=== PATIENT | male | born 1950 | race Caucasian/White ===

== ENCOUNTER → 2021-11-13 16:16 | Outpatient (CLI) | payer MEDICARE, OTHER, SELFPAY ==
[2021-11-13 17:52] LABS: Prostate Specific Antigen 1.89 ng/mL (0.10-4.00)
== END ==
PROVIDERS: PCP Naturopath; Referring Provider Specialist; Visit Provider Specialist
DX: R97.20 Elevated prostate specific antigen [PSA] (principal); N40.1 Benign prostatic hyperplasia with lower urinary tract symptoms; N13.8 Other obstructive and reflux uropathy; R31.29 Other microscopic hematuria
CPT/HCPCS: 36415; 51798; 81002; 84153; 99215

== ENCOUNTER → 2022-01-01 15:56 | Outpatient (CLI) | payer MEDICARE, OTHER, SELFPAY | PROVIDERS: PCP Naturopath; Visit Provider Specialist | DX: N40.1 Benign prostatic hyperplasia with lower urinary tract symptoms (principal); N13.8 Other obstructive and reflux uropathy; R30.0 Dysuria; R31.29 Other microscopic hematuria | CPT/HCPCS: 81002; 87086; 99214 ==

== ENCOUNTER 2022-05-05 08:56 | Day surgery (SDC) | payer MEDICARE, OTHER, SELFPAY ==
[2022-04-28 15:02] VITALS: BMI 21.3
[2022-05-05] VITALS (7 sets, daily range): BP systolic 107–148; BP diastolic 42–78; PULSE 50–69; RESP 12–22; TEMP 36–36.4; O2SAT 97–100; BMI 21.3
[2022-05-05] MEDS: LACTATED RINGERS 1,000 ML 42 ML IV (09:31)
[2022-05-05 09:35] LABS: COVID19 -Nasal RAPID Negative (Negative)
--- NOTE | 2022-05-05 09:43 | PM.PREOP ---
Pre-operative Note COVID-19 Criteria for continued procedure: Expected advancement of disease process, Possibility delay results in more complex future surgery or treatment, Continuing or worsening of significant or severe pain, Delay expected to result in less-positive ultimate med/surg outcome and Non-surgical alternatives not available or appropriate per current SOC Interval Note History & Physical reviewed/Exam performed by Physician: Yes Changes to H&P: No
[2022-05-05] MEDS: CEFAZOLIN 2 GM/100 ML PREMIX 100 ML IV (09:45)
--- NOTE | 2022-05-05 10:17 | SUR.OPER ---
Lithotomy on padded OR bed, head on pillow, arms secured on padded arm boards at <90 degrees abduction. Legs secured in padded yellow fins stirrups.
--- NOTE | 2022-05-05 11:13 | P.OP_ITS ---
Operative Date/Time/Diagnoses Date of procedure: 05/05/22 Time of procedure: 11:05 Pre-op diagnosis: 1. 2 cm bladder calculus. 2. Severe LUTS. 3. BPH. Post-op diagnosis: same Procedure & Clinicians Procedure: 1. Laser cystolitholapaxy (<2.5 cm.). Same procedure as scheduled: Yes Indications: 1. 2 cm bladder calculus. 2. Severe LUTS. 3. BPH. Surgeon: Alexa Ochoa Click Yes if Unassisted: Yes Anesthesia Type: General Operative Notes Findings: 1. Urethra-normal caliber without annular stricture or lesion. 2. External sphincter coapted with normal overlying urothelium. 3. Prostate-5+ cm length with obstructing trilobar hyperplasia and hypervascularity. 4. Bladder-1+ trabeculation. Normal ureteral orifices bilaterally. Urothelium is hyperemic throughout the bladder base and lower acuña. Circumferential impingement the bladder neck due to prostate and modest protrusion intravesical median lobe. Closure Type: not applicable Specimen(s): other (Bladder stone fragments) Applied: catheter ([address]ner catheter to gravity drainage.) Estimated Blood Loss (mL): 2 Blood products transfused: none Procedure in detail: The patient was provided successful spinal anesthetic. He was then positioned in semi lithotomy and the lower abdomen, genitalia, and groin were then prepped and draped in sterile fashion. The 22 Filipino panendoscope was then passed the lower urinary tract with the findings as described above. A 500 micron laser fiber was requested. All operating room personnel and patient were fitted with laser safety eyewear. The patient was positioned in the Trendelenburg to allow optimal visualization and access to the calculus. Lithotripsy was then commenced and painstakingly laser fragmented. The bladder was then left partially filled and the Ellik evacuator was utilized to remove a large amount stone fragment. The bladder was again filled, and again the Ellik was utilized. This process was repeated 2 more times. On final visualization there was 2 or 3 areas with scant stone pumace that remained adherent to the urothelium. Bladder left partially filled and all instrumentation was removed. A 20 Filipino Garner catheter was then inserted, the balloon inflated 10 cc, and then placed to gravity drainage. The patient was repositioned supine, was transferred to [facility], and was transported recovery in stable condition. Complications: none Post-operative Condition: stable Disposition: PACU Plan for aftercare: Discharge home.
--- NOTE | 2022-05-05 12:07 | SUR.PHASEII ---
Pt resting comfortably eating crackers and gingerale.
--- NOTE | 2022-05-05 12:59 | SUR.PHASEII ---
Provided detailed instructions to patient regarding care of kumar catheter bag and leg bag. Patient verbalizes understanding and is able to verbalize back to nurse. Patient able to stand with minimal assistance; denies any numbness or tingling but needs assistance with any steps moving forward due to spinal administered by anesthesia. VSS. All instructions relayed to .
[2022-05-09 16:48] LABS: Ca oxalate dihydrate 30 % (.); Ca oxalate monohydr 65 % (.); Hydroxyapatite 5 % (.); Size 6x4 mm (.)
== END 2022-05-05 13:02 | disposition home or self-care (01) ==
PROVIDERS: PCP Naturopath; Referring Provider Specialist; Visit Provider Specialist
PROC: 0TCB8ZZ Extirpation of Matter from Bladder, Via Natural or Artificial Opening Endoscopic (ICD-10-PCS; CPT 52317; principal; 2022-05-05 10:15)
DX: N21.0 Calculus in bladder (principal); N40.1 Benign prostatic hyperplasia with lower urinary tract symptoms; N13.8 Other obstructive and reflux uropathy; Z20.822 Contact with and (suspected) exposure to COVID-19
CPT/HCPCS: 52317; 82365; 82962; 87635; C1771; C9803; J0690; J2250; J2405; J3010